=== PATIENT | female | born 1960 | race Caucasian/White ===

== ENCOUNTER → 2017-04-20 | Outpatient (CLI) | payer OTHER | LOC: FIMAGING 15:49 | PROVIDERS: ATTEND Obstetrics & Gynecology Gynecology | DX: Z12.31 Encounter for screening mammogram for malignant neoplasm of breast (principal); Z80.3 Family history of malignant neoplasm of breast | CPT/HCPCS: G0202 ==

== ENCOUNTER → 2018-05-02 | Outpatient (CLI) | payer OTHER | LOC: FIMAGING 07:20 | PROVIDERS: ATTEND Radiology Diagnostic Radiology | DX: I83.91 Asymptomatic varicose veins of right lower extremity (principal); M72.8 Other fibroblastic disorders ==

== ENCOUNTER → 2018-06-06 | Outpatient (CLI) | payer OTHER | LOC: FIMAGING 13:12 | PROVIDERS: ATTEND Obstetrics & Gynecology Gynecology | DX: Z12.31 Encounter for screening mammogram for malignant neoplasm of breast (principal); Z80.3 Family history of malignant neoplasm of breast ==

== ENCOUNTER → 2018-10-23 | Day surgery (SDC) | payer OTHER | LOC: FIMAGING 14:35 ==